=== PATIENT | male | born 1980 | race Two or more races ===

== ENCOUNTER 2016-08-15 22:58 | Emergency (ER) | payer OTHER ==
[~2016-08-15] VITALS: Ht 182.9 cm; Wt 78.5 kg
[2016-08-15] MEDS ORDERED: Albuterol ud Inhalation HHN ONE (23:15)
--- NOTE | 2016-08-15 23:19 | Emergency Room Report ---
History of Present Illness General Chief Complaint: Asthma Source: Patient Present Illness HPI A 36-year-old male who had a history of asthma was acute. He outgrew it. He presents with chief complaint of feeling short of breath and asthma since 2:00. Worse with lying flat. Better with sitting up. Denies any fever chills denies any nausea vomiting. He also felt very anxious and took some Xanax. No other complaint. No fever or chills. No nausea no vomiting. He became a bit after he went to [facility]. No family history of DVT or PE. Allergies: Coded Allergies: No Known Allergies (Unverified , 08/15/16) Patient History Past Medical History: see triage record, old chart reviewed, asthma, psych hx Past Surgical History: none Pertinent Family History: none Social History: Denies: smoking Immunizations: other Reviewed Nursing Documentation: PMH: Agreed, PSxH: Agreed Nursing Documentation-PMH Past Medical History: No History, Except For Hx Asthma: Yes Review of Systems Eye: Denies: blurred vision, eye pain ENT: Denies: ear pain, nose congestion, throat swelling Respiratory: Reports: shortness of breath, Denies: cough Cardiovascular: Denies: chest pain, palpitations Gastrointestinal: Denies: abdominal pain, diarrhea, nausea, vomiting Musculoskeletal: Denies: back pain, joint pain Skin: Denies: rash Neurological: Denies: headache, numbness Endocrine: Denies: increased thirst, increased urine Hematologic/Lymphatic: Denies: easy bruising All Other Systems: negative except mentioned in HPI Physical Exam Vital Signs Date Time Temp Pulse Resp B/P Pulse Ox O2 Delivery O2 Flow Rate FiO2 08/15/16 23:06 97.5 99 16 143/77 98 Room Air vitals unremarkable Sp02 EP Interpretation: reviewed, normal General Appearance: well appearing, no apparent distress, alert Head: normocephalic, atraumatic Eyes: bilateral eye EOMI, bilateral eye PERRL ENT: hearing grossly normal, normal pharynx Neck: full range of motion, supple, no meningismus Respiratory: chest non-tender, lungs clear, normal breath sounds, other - tachypnic Cardiovascular #1: regular rate, rhythm, no murmur Gastrointestinal: normal bowel sounds, non tender, no mass, no organomegaly, no bruit, non-distended Musculoskeletal: back normal, gait/station normal, normal range of motion Psychiatric: mood/affect normal Skin: warm/dry Medical Decision Making Diagnostic Impression: Primary Impression: Asthma attack ER Course Patient presents with shortness of breath and reactivation of asthma. He said he felt better after nebulizer treatment. Breathing normally now. No evidence of ACS, PE, dissection to name a few. We'll discharge home. Last Vital Signs Date Time Temp Pulse Resp B/P Pulse Ox O2 Delivery O2 Flow Rate FiO2 08/15/16 23:06 97.5 99 16 143/77 98 Room Air Status: improved Disposition: HOME, SELF-CARE Condition: Stable Scripts Albuterol Sulfate* (ALBUTEROL SULFATE MDI*) 8.5 Gm Hfa.aer.ad 2 PUFF INH Q4H Y for cough/wheezing, #1 EA 0 Refills Prov: LELAND COURTNEY M.D. 08/16/16 Patient Instructions: Asthma, Adult Additional Instructions: Followup your Dr. in 2-3 days. Return if symptom worsen. LELAND COURTNEY M.D. Aug 15, 2016 23:19
[2016-08-16] MEDS ORDERED: ALBUTEROL SULF8.5 GM INH (00:17)
[2016-08-16 00:24] VITALS: BP 123/91
== END 2016-08-16 00:25 | disposition home or self-care (01) ==
LOC: EMR 23:21
DX: J45.901 Unspecified asthma with (acute) exacerbation (principal)
CPT/HCPCS: 36415; 85379; 94640; 94664; 99283

== ENCOUNTER 2016-09-23 11:20 | Emergency (ER) | payer OTHER ==
[~2016-09-23] VITALS: Ht 182.9 cm; Wt 78.9 kg
[~2016-09-23 11:20] MED LIST: ALBUTEROL SULF8.5 GM INH
[2016-09-23] MEDS ORDERED: XANAX0.25 MG ORAL (11:41)
[2016-09-23] MEDS ORDERED: ROBAXIN-750750 MG PO (12:10)
[2016-09-23] MEDS ORDERED: ALBUTEROL SULF8.5 GM INH (12:10)
[2016-09-23] MEDS ORDERED: PREDNISONE20 MG ORAL (12:10)
[2016-09-23] MEDS ORDERED: IBUPROFEN600 MG ORAL (12:10)
[2016-09-23] MEDS ORDERED: NORCO 5-325 TA1 EACH ORAL (12:10)
[2016-09-23] MEDS ORDERED: Norco 10mg/325mg tab ORAL ONE (12:15)
[2016-09-23] MEDS ORDERED: Ketorolac 60mg Inj IM ONE (12:15)
[2016-09-23 12:19] VITALS: BP 124/92
--- NOTE | 2016-09-23 12:58 | Emergency Room Report ---
History of Present Illness General Chief Complaint: Lower Back Pain or Injury Source: Patient, Medical Record Present Illness HPI Patient presents with lower back pain mainly right-sided with some radiation to the buttock area Patient reports that he has 3 slipped discs This was diagnosed 7 years ago on MRI Patient has pain management and has had recommendations for possible surgery Several days ago as he was standing He felt increased pain in that right lower back region Denies any saddle paresthesia denies any loss of control of bowel or urination Presents with pain 5/10 Denies any focal weakness Allergies: Coded Allergies: No Known Allergies (Unverified , 08/15/16) Patient History Past Medical History: see triage record Pertinent Family History: none Reviewed Nursing Documentation: PMH: Agreed, PSxH: Agreed Nursing Documentation-PMH Hx Asthma: Yes Review of Systems All Other Systems: negative except mentioned in HPI Physical Exam Vital Signs Date Time Temp Pulse Resp B/P Pulse Ox O2 Delivery O2 Flow Rate FiO2 09/23/16 11:33 98.8 108 16 124/92 97 Room Air Sp02 EP Interpretation: reviewed, normal General Appearance: well appearing, no apparent distress Head: normocephalic, atraumatic Eyes: bilateral eye EOMI, bilateral eye PERRL ENT: hearing grossly normal, normal pharynx, TMs + canals normal, uvula midline Neck: full range of motion, supple, no meningismus, no bony tend Respiratory: lungs clear, normal breath sounds, no rhonchi, no respiratory distress, no retraction, no accessory muscle use Cardiovascular #1: normal peripheral pulses, regular rate, rhythm, no edema, no gallop, no JVD, no murmur Gastrointestinal: normal bowel sounds, non tender, soft, no mass, no organomegaly, non-distended, no guarding, no hernia, no pulsatile mass, no rebound Genitourinary: no CVA tenderness Musculoskeletal: normal inspection, other - Patient has some mild discomfort right-sided paraspinal L3-4 region no midline step-offs sensory intact, good muscle tone no deficits, Neurologic: oriented x3, responsive, invas tech III-XII nml as tested, motor strength/ tone normal, sensory intact Psychiatric: mood/affect normal Skin: normal color, no rash, warm/dry, palpation normal Lymphatic: normal inspection, no adenopathy Medical Decision Making Diagnostic Impression: Primary Impression: Low back pain ER Course Patient appears to have an activation of a chronic pathology There is no signs of any neurological neurosurgical End organ injury And the patient will have initial conservative outpatient trial Last Vital Signs Date Time Temp Pulse Resp B/P Pulse Ox O2 Delivery O2 Flow Rate FiO2 09/23/16 12:19 98.8 16 124/92 97 Room Air 09/23/16 11:33 108 Status: improved Disposition: HOME, SELF-CARE Condition: Improved Scripts Prednisone* (PREDNISONE*) 20 Mg Tablet 20 MG ORAL BID, #8 TAB Prov: EWA OAKES.O. 09/23/16 Albuterol Sulfate* (ALBUTEROL SULFATE MDI*) 8.5 Gm Hfa.aer.ad 2 PUFF INH Q4H Y for cough/wheezing, #1 EA 0 Refills Prov: EWA OAKES D.O. 09/23/16 Methocarbamol* (ROBAXIN-750*) 750 Mg Tablet 750 MG PO TID, #21 TAB 0 Refills Prov: EWA OAKES D.O. 09/23/16 Hydrocodone Bit/Acetaminophen 5-325* (NORCO 5-325*) 1 Each Tablet 1 TAB ORAL Q6H Y for For Pain, #10 TAB 0 Refills Prov: EWA OAKES.O. 09/23/16 Ibuprofen* (MOTRIN*) 600 Mg Tablet 600 MG ORAL Q8H Y for For Pain, #30 TAB 0 Refills Prov: EWA OAKES.O. 09/23/16 Referrals: [facility] (PCP) Patient Instructions: Back Pain, Adult Additional Instructions: Patient is provided with the discharge instructions notified to follow up with primary doctor in the next 2-3 days otherwise return to the er with any worsening symptoms. Please note that this report is being documented using [employer] technology. This can lead to erroneous entry secondary to incorrect interpretation by the dictating instrument. EWA OAKES D.O. September 23, 2016 12:58
== END 2016-09-23 12:40 | disposition home or self-care (01) ==
LOC: EMR 12:37
DX: M54.5 Low back pain (principal); J45.909 Unspecified asthma, uncomplicated
CPT/HCPCS: 96372; 99284

== ENCOUNTER 2017-04-04 14:50 | Emergency (ER) | payer OTHER ==
[~2017-04-04] VITALS: Ht 182.9 cm; Wt 80.3 kg
[~2017-04-04 14:50] MED LIST changes: +IBUPROFEN600 MG ORAL; +NORCO 5-325 TA1 EACH ORAL; +PREDNISONE20 MG ORAL; +ROBAXIN-750750 MG PO; +XANAX0.25 MG ORAL
[2017-04-04 15:30] VITALS: BP 130/87
--- NOTE | 2017-04-04 15:47 | Emergency Room Report ---
History of Present Illness General Chief Complaint: Upper Respiratory Illness Source: Patient Present Illness HPI 37-year-old male presents to the emergency department complaining of nasal congestion, body-aches, increased mucus, and cough times one week. Patient reports subjective fever last night he has been taking Claritin. She denies ill contacts. He denies neck pain or stiffness. he states he's been using an albuterol inhaler . Reports history of asthma mainly as a younger child, however he has flare-ups when he does get sick. denies wheezing, SOB or difficulty breathing at this time. 3/10 in severity sinus pressure. pt. also reports intermittent moderately runny nose. denies ST. Denies CP, Palpitations, LOC, AMS, dizziness, Changes in Vision, Sensation, paresthesias, or a sudden severe headache. Allergies: Coded Allergies: No Known Allergies (Unverified , 08/15/16) Patient History Past Medical History: see triage record Past Surgical History: none Pertinent Family History: none Reviewed Nursing Documentation: PMH: Agreed, PSxH: Agreed Nursing Documentation-PMH Past Medical History: No Stated History Review of Systems All Other Systems: negative except mentioned in HPI Physical Exam Vital Signs Date Time Temp Pulse Resp B/P (MAP) Pulse Ox O2 Delivery O2 Flow Rate FiO2 04/04/17 15:08 97.5 82 14 130/87 98 Room Air Sp02 EP Interpretation: reviewed, normal General Appearance: no apparent distress, alert, GCS 15, non-toxic Head: normocephalic, atraumatic Eyes: bilateral eye normal inspection, bilateral eye PERRL ENT: hearing grossly normal, normal pharynx, no angioedema, normal voice, TMs + canals normal, uvula midline, moist mucus membranes, nasal congestion, pharyngeal erythema - primarily cobble stoning appearance Neck: full range of motion, no meningismus, no bony tend, supple/symm/no masses Respiratory: chest non-tender, lungs clear, normal breath sounds, no respiratory distress, no wheezing, speaking full sentences Cardiovascular #1: regular rate, rhythm Musculoskeletal: back normal, gait/station normal, normal range of motion, non- tender Neurologic: alert, oriented x3, responsive, motor strength/tone normal, sensory intact, speech normal Skin: normal color, no rash, warm/dry, well hydrated Lymphatic: no adenopathy Medical Decision Making PA Attestation Dr. Bermeo is my supervising Physician whom patient management has been discussed with. Diagnostic Impression: Primary Impression: Upper respiratory infection Qualified Codes: J06.9 - Acute upper respiratory infection, unspecified; B97.89 - Other viral agents as the cause of diseases classified elsewhere ER Course 37-year-old male presents to the emergency department complaining of nasal congestion, body-aches, increased mucus, and cough times one week. Patient reports subjective fever last night he has been taking Claritin. She denies ill contacts. He denies neck pain or stiffness. he states he's been using an albuterol inhaler . Reports history of asthma mainly as a younger child, however he has flare-ups when he does get sick. denies wheezing, SOB or difficulty breathing at this time. 3/10 in severity sinus pressure. pt. also reports intermittent moderately runny nose. denies ST. Denies CP, Palpitations, LOC, AMS, dizziness, Changes in Vision, Sensation, paresthesias, or a sudden severe headache. Ddx considered but are not limited to URI, pneumonia, PE, strep pharyngitis, meningitis. Vital signs: Pt. is afebrile, the remaining VS are WNL H&PE are most consistent with URI- no meningeal signs, oropharynx is not involved, no evidence of bacterial infection at this time. ORDERS: none required at this time, the diagnosis is clinical ED INTERVENTIONS: None required at this time. --PT. EDUCATION: Discussed antibiotic resistance with inappropriate prescribing of antibiotics for viral illnesses. Discussed signs and symptoms to indicate viral illness versus bacterial illness. -d/w pt. conservative treatment, and to follow up with a primary care provider. pt given a list of primary care clinics for follow up. d/w pt. to return to the ED with worsening or new symptoms. DISCHARGE: At this time pt. is stable for d/c to home. Will provide printed patient care instructions, and any necessary prescriptions. Care plan and follow up instructions have been discussed with the patient prior to discharge. Last Vital Signs Date Time Temp Pulse Resp B/P (MAP) Pulse Ox O2 Delivery O2 Flow Rate FiO2 04/04/17 15:10 80 16 Room Air 04/04/17 15:08 97.5 130/87 98 Disposition: HOME, SELF-CARE Condition: Stable Scripts Pseudoephedrine Hcl* (SUDAFED*) 60 Mg Tablet 60 MG PO Q6H, #15 TAB Prov: Lindsay Regan 04/04/17 Guaifenesin (Guaifenesin) 1,200 Mg Tab.er.12h 1200 MG PO Q12HR for 10 Days, #20 TAB Prov: Lindsay Regan. 04/04/17 Codeine/Promethazine Hcl* (PROMETHAZINE-CODEINE SYRUP*) 118 Ml Syrup 5 ML ORAL Q6H Y for For Cough, #120 ML 0 Refills Prov: Lindsay Regan 04/04/17 Patient Instructions: Upper Respiratory Infection, Adult Additional Instructions: Take medications as directed. Follow up with a Primary Care Provider in 3-5 days, even if your symptoms have resolved. --Please review list of primary care clinics, if you do not already have a primary care provider Return sooner to ED if new symptoms occur, or current symptoms become worse. Do not drink alcohol, drive, or operate heavy machinery while taking Cough Syrup as this may cause drowsiness. - Please note that this Emergency Department Report was dictated using [employer] was[employer] technology software, occasionally this can lead to erroneous entry secondary to interpretation by the dictation equipment. Lindsay Regan Apr 04, 2017 15:46
[2017-04-04] MEDS ORDERED: PSEUDOEPHEDRINE60 MG PO (15:51)
[2017-04-04] MEDS ORDERED: PROMETHAZINE-C118 M1 ORAL (15:51)
[2017-04-04] MEDS ORDERED: GUAIFENESIN1200 MG PO (15:51)
[2017-04-04 16:00] VITALS: BP 137/90
== END 2017-04-04 16:05 | disposition home or self-care (01) ==
LOC: EMR 15:50
DX: J06.9 Acute upper respiratory infection, unspecified (principal)
CPT/HCPCS: 99283